=== PATIENT | male | born 1950 | race African-American/Black ===

== ENCOUNTER 2023-04-12 13:08 | Emergency (ER) | payer MEDICAID, OTHER ==
[~2023-04-12] VITALS: Ht 180.3 cm; Wt 63.0 kg
[2023-04-12 13:52] VITALS: BP 165/85; PULSE 60; RESP 16; TEMP 98.9; O2SAT 100
[2023-04-12 16:35] LABS: BASOPHILS % 0.9 % (0.0-2.0); EOSINOPHILS % 0.5 % (0.0-5.0); HEMATOCRIT. 38.4 % (42.0-52.0); HEMOGLOBIN. 12.9 g/dL (14.0-18.0); LYMPHOCYTES % 29.6 % (20.0-50.0); MEAN CORPUSCULAR HEMOGLOBIN 28.9 pg (28.0-32.0); MEAN CORPUSCULAR VOLUME 86.2 fL (80.0-94.0); MEAN PLATELET VOLUME 7.9 fl (7.4-10.4); PLATELET 152 x1000/uL (130-400); RED BLOOD CELL COUNT 4.46 mill/uL (4.7-6.1); RED CELL DISTRIBUTION WIDTH 14.7 % (11.6-14.6)
[2023-04-12 16:36] LABS: PROTHROMBIN TIME 10.8 sec (9.6-11.0)
[2023-04-12 16:38] LABS: CHLORIDE 109 mEq/L (98-107)
== END 2023-04-12 18:35 | disposition left against medical advice (07) ==
LOC: ER 13:08 → CANBEDREQ 18:34 → ER 18:35
DX: S72.002A Fracture of unspecified part of neck of left femur, initial encounter for closed fracture (principal); G89.11 Acute pain due to trauma; W18.39XA Other fall on same level, initial encounter; Y93.89 Activity, other specified; Y92.89 Other specified places as the place of occurrence of the external cause; Y99.8 Other external cause status
CPT/HCPCS: 36415; 72131; 72192; 80053; 85025; 86850; 86900; 99284

== ENCOUNTER 2024-01-24 17:48 | Emergency (ER) | payer OTHER ==
[~2024-01-24] VITALS: Ht 180.3 cm; Wt 73.0 kg
[2024-01-24 17:50] VITALS: O2SAT 98
[2024-01-24 18:19] VITALS: TEMP 97.9
[2024-01-24 18:59] LABS: BASOPHILS % 0.4 % (0.0-2.0); EOSINOPHILS % 0.3 % (0.0-5.0); HEMATOCRIT. 38.9 % (42.0-52.0); HEMOGLOBIN. 13.2 g/dL (14.0-18.0); LYMPHOCYTES % 16.9 % (20.0-50.0); MEAN CORPUSCULAR HEMOGLOBIN 28.5 pg (28.0-32.0); MEAN PLATELET VOLUME 7.8 fl (7.4-10.4); MONOCYTES % 8.4 % (2.0-8.0); PLATELET 223 x1000/uL (130-400); RED BLOOD CELL COUNT 4.63 mill/uL (4.7-6.1); RED CELL DISTRIBUTION WIDTH 14.4 % (11.6-14.6)
[2024-01-24 19:05] LABS: CHLORIDE 108 mEq/L (98-107); POTASSIUM 3.9 mEq/L (3.5-5.1); SODIUM 142 mEq/L (136-145)
[2024-01-24 19:06] LABS: CARBON DIOXIDE 27 mEq/L (21-32)
[2024-01-24 19:12] LABS: GLUCOSE 92 mg/dL (70-105); UREA NITROGEN BLOOD 17 mg/dL (9-23)
[2024-01-24 19:13] LABS: TROPONIN I HIGH SENSITIVITY 9 ng/L (3.0-53)
[2024-01-24 20:27] LABS: CLARITY URINE CLEAR (CLEAR); COLOR URINE YELLOW (YELLOW); GLUCOSE URINE NEGATIVE (NEGATIVE); KETONES URINE 1+ (NEGATIVE); LEUKOCYTE ESTERASE URINE NEGATIVE (NEGATIVE); NITRITE URINE NEGATIVE (NEGATIVE); OCCULT BLOOD URINE NEGATIVE (NEGATIVE); PROTEIN URINE TRACE (NEGATIVE); SPECIFIC GRAVITY URINE 1.015 (1.005-1.030)
[2024-01-24 20:42] LABS: BACTERIA URINE 1+; RBC URINE NONE SEEN /hpf (0-2); SQUAMOUS EPITHELIAL CELL URINE FEW /lpf (RARE/1+); WBC URINE 0-2 /hpf (0-2)
[2024-01-24] MEDS: KETOROLAC 15MG/ML VIAL IV NR (20:54)
[2024-01-24 22:30] VITALS: BP 180/90; PULSE 63; RESP 11
== END 2024-01-24 22:56 | disposition short-term general hospital (02) ==
LOC: ER 17:48 → EDBEDREQTM 21:30 → EDBEDREQ 21:30 → CANBEDREQ 22:49 → ER 22:56
DX: S09.90XA Unspecified injury of head, initial encounter (principal); W18.39XA Other fall on same level, initial encounter; Y93.89 Activity, other specified; Y92.89 Other specified places as the place of occurrence of the external cause; Y99.8 Other external cause status
CPT/HCPCS: 80048; 81003; 85025; 84484; 36415; 70450; 72131; 93005; 96374; 99285; J1885; Z7610 ×4